=== PATIENT | male | born 1990 | race Caucasian/White ===

== ENCOUNTER 2017-08-09 13:06 | Emergency (ER) | payer BC ==
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
== END 2017-08-09 14:00 | disposition home or self-care (01) ==
LOC: ER 13:06
DX: S71.112A Laceration without foreign body, left thigh, initial encounter (principal); W26.0XXA Contact with knife, initial encounter; Y92.828 Other wilderness area as the place of occurrence of the external cause
CPT/HCPCS: 12002; 99283